=== PATIENT | male | born 1960 | race Caucasian/White ===

== ENCOUNTER 2022-06-11 21:14 | Emergency (ER) | payer BC ==
[2022-06-11 21:20] VITALS: BP 131/81; PULSE 70; RESP 18; TEMP 98; BMI 26.4
[2022-06-11] MEDS ORDERED: IBUPROFEN 600 MG TABLET (FP) PO ONE ×2 (23:42→23:44)
== END 2022-06-12 00:34 | disposition home or self-care (01) ==
LOC: JER 21:14 → JERFT 21:14 → JER 06-12 00:34
DX: S92.002A Unspecified fracture of left calcaneus, initial encounter for closed fracture (principal); W01.0XXA Fall on same level from slipping, tripping and stumbling without subsequent striking against object, initial encounter
CPT/HCPCS: 73610-TC-LT-FY; 73630-TC-LT; 73700-TC-RT; 99284-25